=== PATIENT | male | born 1935 | race Caucasian/White ===

== ENCOUNTER 2024-08-03 01:04 | Emergency (ER) | payer MEDICARE, OTHER, SELFPAY ==
--- NOTE | 2024-08-03 04:18 | DOWNTIME ---
There was a [employer] Client [employer] Downtime on 07/06/2024 from 0100 to 07/06/2024 at 0300. Downtime documentation of patient's care, including medication administrations, has been reconciled in the electronic record per guidelines. Refer to the
patient's paper chart under the miscellaneous tab to see printed paper medication records and downtime forms.
[2024-08-03 04:21] LABS: Blood Urea Nitrogen 33 mg/dl (9-20); Calcium 8.9 mg/dl (8.4-10.2); Carbon Dioxide 24 mmol/L (22-30); Chloride 103 mmol/L (98-107); Glucose 113 mg/dl (70-99); Potassium 4.1 mmol/L (3.5-5.1); Sodium 140 mmol/L (135-145); eGFR > 60.00
[2024-08-03 04:39] VITALS: BP 97/62
[2024-08-03 04:50] LABS: % Basophils 0.4 % (0-2); % Eosinophils 0.5 % (0-6); % Immature Granulocytes 2.4 % (0-0.5); % Monocytes 27.2 % (1.7-9.3); % Neutrophils 60.5 % (42.2-75.2); Absolute Eosinophils 0.1 10^3/uL (0-0.7); Absolute Immature Granulocytes 0.3 10^3/uL (0-0.05); Absolute Monocytes 2.9 10^3/uL (0.1-0.6); Absolute Neutrophils 6.5 10^3/uL (1.4-6.5); Hematocrit 32.8 % (39.0-52.0); Hemoglobin 11.6 g/dL (13.0-18.0); Mean Corp Hgb Conc. 35.4 g/dL (33.0-37.0); Mean Corpuscular Hgb 34.5 pg (27.0-31.0); Mean Corpuscular Volume 97.6 fL (80.0-94.0); Mean Platelet Volume 10.3 fL (7.4-10.4); Nucleated Red Blood Cells % 0 % (-); Platelet Count 101 10^3/uL (130-400); Red Blood Cell Count 3.36 10^6/uL (4.70-6.10); White Blood Cell Count 10.8 10^3/uL (4.8-10.8)
[2024-08-03 05:36] LABS: Absolute Neutrophils -Man Diff 7.5 10^3/uL (1.4-6.5); Band Neutrophils 0 % (0-3); Lymphocytes 11 % (20-51); Monocytes 19 % (2-9); Normal RBC Morphology Yes; Platelets Checked Yes; Segmented Neutrophils 70 % (42-75); Total Cells Counted 100
--- NOTE | 2024-08-04 06:02 | ED.GENMED ---
History of Present Illness
General
Chief Complaint: Fall
Source: records
Exam Limitations: dementia
History of Present Illness
History of Present Illness:
Unwitnessed fall. Patient is unable to add history. Laceration and swelling to the left forehead. Patient denies any other specific complaints.
Past History
Past History
ED Past Medical History: HTN, Seizures, Other (HIV positive) and Other (Dementia)
ED Past Surgical History: Cardiac (pacer)
Social History
Tobacco: Non-smoker
Review of Systems
Review of Systems
Unable to obtain full review of systems at this time due to: dementia
All Other Systems: Not applicable
Phy Exam
Physical Exam
Physical Exam:
TRAUMA EXAM:
VITAL SIGNS: Vital signs reviewed, cooperative
DISTRESS: No active disease
EYES: Pupils reactive, no orbital trauma
NOSE: No deformity or epistaxis
FACE AND SCALP: 2 cm laceration left forehead with surrounding hematoma and superficial abrasion
NECK: Supple nontender
BACK: Back nontender, pelvis stable to compression
RESPIRATORY: No distress, breath sounds normal, no tender chest wall
CARDIAC: No murmur, pulses equal and strong. Pacemaker left upper chest wall
ABDOMEN: Soft nontender bowel sounds normal
SKIN: Superficial abrasions to both arms
EXTREMITIES: Nontender. Pelvis stable. Upper EXTR lower extremities within normal limits. Good range of motion of the hips. No other joint abnormalities
NEUROLOGICAL: Alert to name, no motor deficits
PSYCH: Mood affect normal
Course
Orders/Labs/Results
Orders:
Orders
08/03/24
[address] Cervical Spine W/o Iv Contr Routine
CT Facial Bones W/o Iv Contras Routine
CT Head W/o Iv Contrast Routine
Reason For Exam: fall
08/03/24 01:33
Basic Metabolic Panel Routine
Complete Blood Count/With Diff Routine
Manual Differential Routine
Abnormal Lab Results
08/03/24
01:33
RBC 3.36 L 10^6/uL
(4.70-6.10)
Hgb 11.6 L g/dL
(13.0-18.0)
Hct 32.8 L %
(39.0-52.0)
MCV 97.6 H fL
(80.0-94.0)
MCH 34.5 H pg
(27.0-31.0)
Plt Count 101 L 10^3/uL
(130-400)
Abs Immat Gran (auto) 0.3 H 10^3/uL
(0-0.05)
Absolute Lymphs (auto) 1.0 L 10^3/uL
(1.2-3.4)
Absolute Monos (auto) 2.9 H 10^3/uL
(0.1-0.6)
Immature Gran % 2.4 H %
(0-0.5)
Lymphocytes % 9.0 L %
(20.5-51.1)
Monocytes % 27.2 H %
(1.7-9.3)
Abs Neuts (Manual) 7.5 H 10^3/uL
(1.4-6.5)
Lymphocytes (Manual) 11 L %
(20-51)
Monocytes (Manual) 19 H %
(2-9)
BUN 33 H mg/dl
(9-20)
Glucose 113 H mg/dl
(70-99)
08/03/24 01:33
08/03/24 01:33
Vital Signs
Initial and Last Documented VS:
Initial Vital Signs
Pulse Resp BP Pulse Ox
75 18 97/62 98
08/03/24 04:39 08/03/24 04:39 08/03/24 04:39 08/03/24 04:39
Last Documented Vital Signs
Pulse Resp BP Pulse Ox
75 18 97/62 98
08/03/24 04:39 08/03/24 04:39 08/03/24 04:39 08/03/24 04:39
Procedures
Laceration Closure
Left Face:
Status of Wound: clean
Size of Wound in cm: 3
Description of Wound Edges: ragged
Preparation: cleaned with saline and cleaned with Betadine
Anesthesia: 1% Lidocaine with epi
Revision/Debridement: routine- no revision
Wound exploration: explored to base- no FB
Type of Closure: single layer closure
Skin Closure Material: 5-0 nylon
Number of sutures: 3
MDM/Problems Addressed
Differential Diagnosis Includes:
Patient with an unwitnessed fall. Pacemaker interrogated. Medically stable. As for the trauma laceration was repaired sterilely. No other signs of significant trauma.
*Radiology
Radiology exam reviewed: radiology read reviewed (No acute findings. Degenerative changes)
*Critical Care Note
Total Time (30-74mins, 75-104mins- exclusive of procedures): Not Applicable
Data Reviewed
Review of Other/Old Records Reveals: Labs, Records and Testing
ED Attending Note
-
Portions of this chart may have been created with voice recognition software.� Occasional wrong word or��sound alike� substitutions may have occurred due to the inherent limitations of voice recognition software.
Discharge Plan
Departure
Patient Disposition: Retirement/SNF
Discharge Problem:
Unwitnessed fall, Left forehead contusion/laceration
Prescriptions:
No Action
levetiracetam 500 MG tablet
500 mg PO BID Qty: 60 0RF
acetaminophen 325 MG tablet
650 mg PO Q4HPRN PRN (Reason: mild pain/fever)
cyanocobalamin (vitamin B-12) 1,000 MCG tablet
1,000 mcg PO DAILY
magnesium hydroxide 30 ML suspension
30 ml PO DAILY PRN (Reason: if no bm on 3rd day)
bisacodyl [OneLAX Bisacodyl] 10 MG suppository
10 mg GA DAILYPRN PRN (Reason: if no bm aftr mom)
Enema 135 ML enema
118 ml GA DAILYPRN PRN (Reason: 24hrs aftr [place] if no bm)
betamethasone dipropionate 1 APPLIC cream
1 applic topical Q12H PRN (Reason: rash)
Prezcobix 1 EACH tablet
1 tab PO DAILY
Descovy 1 EACH tablet
1 tab PO DAILY
betamethasone dipropionate 0.05 % cream
1 applic TOPICAL BID
midodrine 5 mg Tablet
5 mg PO TID@0800,1300,1800 30 Days Qty: 90 0RF
ferrous sulfate [FeroSul] 325 mg (65 mg iron) tablet
325 mg PO DAILY 30 Days Qty: 30 0RF
Referrals:
Carter Solis I., DO [Family Provider] -
Interventions
Interventions:
*Risk Screen - Suicide Last Done: 08/03/24 01:30
*General Assessment Last Done: 08/03/24 01:30
*Neglect/Abuse Screening Last Done: 08/03/24 01:30
ED- Fall Risk Assessment Last Done: 08/03/24 01:30
*Nursing Disposition Last Done: 08/03/24 04:39
ED-Musculoskeletal Assessment Last Done: 08/03/24 01:30
ED- Neurological Assessment Last Done: 08/03/24 01:30
ED-Skin Assessment Last Done: 08/03/24 01:30
Discharge Date and Time
Discharge Date/Time: 08/03/24 04:41
Print Language: MACEDONIAN
== END 2024-08-03 04:41 ==
LOC: EMR 01:04
PROVIDERS: EMERGENCY PHYSICIAN Emergency Medicine; FAMILY PHYSICIAN Internal Medicine
DX: S01.81XA Laceration without foreign body of other part of head, initial encounter (principal); W19.XXXA Unspecified fall, initial encounter; I10 Essential (primary) hypertension; F03.90 Unspecified dementia, unspecified severity, without behavioral disturbance, psychotic disturbance, mood disturbance, and anxiety; Z21 Asymptomatic human immunodeficiency virus [HIV] infection status
CPT/HCPCS: 12013; 99284; 70450; 70486; 72125; 80048; 85025